=== PATIENT | female | born 1940 | race American Indian/Alaskan Native ===

== ENCOUNTER 2017-08-26 10:36 | Outpatient (CLI) | payer OTHER | END 2017-08-26 15:14 | disposition home or self-care (01) | LOC: SONOGRAMA 10:36 | DX: E04.2 Nontoxic multinodular goiter (principal) ==

== ENCOUNTER 2019-07-06 06:40 | Day surgery (SDC) | payer OTHER | END 2019-07-06 10:45 | disposition home or self-care (01) | LOC: AMB-ENDOS 06:40 | DX: K63.5 Polyp of colon (principal); Z12.11 Encounter for screening for malignant neoplasm of colon ==

== ENCOUNTER 2022-11-23 13:41 | Outpatient (CLI) | payer OTHER | END 2022-11-23 13:50 | disposition home or self-care (01) | LOC: NUCLEAR 13:41 | PROVIDERS: ATTEND Obstetrics & Gynecology Gynecology | DX: M81.0 Age-related osteoporosis without current pathological fracture (principal); M85.80 Other specified disorders of bone density and structure, unspecified site ==